=== PATIENT | male | born 1970 | race Two or more races ===

== ENCOUNTER → 2019-07-24 | Emergency (ER) | payer OTHER ==
[~2019-07-24] VITALS: Ht 177.8 cm; Wt 77.1 kg
[~2019-07-24] MED LIST: PERCOCET 5-3251 EACH; ZYRTEC10 M3
== END | disposition home or self-care (01) ==
LOC: ER 12:33
DX: Z76.0 Encounter for issue of repeat prescription (principal)

== ENCOUNTER 2019-07-29 00:42 | Emergency (ER) | payer OTHER ==
[~2019-07-29] VITALS: Ht 177.8 cm; Wt 75.7 kg
== END 2019-07-29 04:20 | disposition home or self-care (01) ==
LOC: ER 00:42
DX: M54.2 Cervicalgia (principal)

== ENCOUNTER 2019-07-31 10:59 | Emergency (ER) | payer OTHER ==
[~2019-07-31] VITALS: Ht 177.8 cm; Wt 75.7 kg
== END 2019-07-31 12:33 | disposition home or self-care (01) ==
LOC: ER 10:59
DX: M62.838 Other muscle spasm (principal); M54.2 Cervicalgia

== ENCOUNTER 2020-02-04 11:26 | Emergency (ER) | payer OTHER ==
[~2020-02-04] VITALS: Ht 177.8 cm; Wt 73.5 kg
[2020-02-04] MEDS ORDERED: TRAMADOL HCL E100 MG (11:52)
[2020-02-04] MEDS ORDERED: CALTRATE 600+D1 EAC1 (11:53)
[2020-02-04] MEDS ORDERED: OXYCODONE (11:53)
[2020-02-04] MEDS ORDERED: CIPRO500 MG PO (12:41)
[2020-02-04] MEDS ORDERED: PREDNISONE20 M1 PO (12:41)
[2020-02-04] MEDS ORDERED: OFLOXACIN5 ML OTIC (12:41)
[2020-02-04] MEDS ORDERED: PERCOCET 5-3251 EACH PO (12:41)
[2020-02-04] MEDS ORDERED: SKELAXIN800 MG PO (12:41)
== END 2020-02-04 12:59 ==
LOC: ER 11:26
DX: M54.89 Other dorsalgia (principal); H60.8X1 Other otitis externa, right ear; H66.91 Otitis media, unspecified, right ear